=== PATIENT | female | born 1945 | race Caucasian/White ===

== ENCOUNTER 2019-06-17 16:38 | Inpatient (IN) | payer MEDICARE, BC ==
[~2019-06-17] VITALS: Ht 167.6 cm; Wt 47.6 kg
[2019-06-17] MEDS ORDERED: ASPI-1169 PO (17:17)
[2019-06-17] MEDS ORDERED: METO25TA20 PO (17:17)
[2019-06-17] MEDS ORDERED: TIOT18CA3 IH (17:17)
[2019-06-17] MEDS ORDERED: NICO1PAT44 TD (17:17)
[2019-06-17] MEDS ORDERED: CLOP75TA15 PO (17:17)
[2019-06-17] MEDS ORDERED: FLUT1BLS IH (17:17)
[2019-06-17] MEDS ORDERED: ONDA4TAB5 PO (17:17)
[2019-06-17] MEDS ORDERED: ATOR10TA PO (17:17)
[2019-06-17] MEDS ORDERED: MULT-24 PO (17:17)
[2019-06-17] MEDS ORDERED: FURO-145 PO (17:17)
[2019-06-17] MEDS ORDERED: ALBU18HF2 IH (17:20)
[2019-06-17 17:30] VITALS: BP 148/77
[2019-06-17] MEDS ORDERED: MAGNESIUM HYDROXIDE 30 ML UDC PO PRN (17:30)
[2019-06-17] MEDS ORDERED: BLOOD SUGAR DIAGNOSTIC 1 EACH STRIP IN ONE (17:30)
[2019-06-17] MEDS ORDERED: MAG HYDROX/AL HYDROX/SIMETH 30 ML UDC PO PRN (17:30)
[2019-06-17] MEDS ORDERED: LORAZEPAM 0.5 MG TABLET PO PRN (17:30)
[2019-06-17] MEDS ORDERED: ACETAMINOPHEN 325 MG TABLET PO PRN (17:30)
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
--- NOTE | 2019-06-17 19:01 | NUR ---
DR HERNANDEZ NOTIFIED OF MED RECONCILIATION
--- NOTE | 2019-06-17 19:28 | NUR ---
GPS RN NOTE RECEIVED PATIENT ASLEEP IN HER BED, AROUSE TO VERBAL/TACTILE STIMULI. A & O X 3. NO ACUTE DISTRESS NOTED. PER AM RN REPORT PATIENT IS SLEEPING AFTER THE ADMISSION & UNABLE TO DO CSSRS ASSESSMENT ON PATIENT. WILL DO CSSRS ASSESSMENT ONCE PATIENT IS AWAKE. PER REPORT, PATIENT HAD BEEN COOPERATIVE BUT ANXIOUS AT TIMES. SAFETY MEASURES IN PLACE. BED ALARM ON. BED IN LOW LOCKED POSITION. WILL CONTINUE TO MONITOR Q 15 MINS. FOR SAFETY & BEHAVIOR.
[2019-06-17 20:00] VITALS: BP 136/69
[2019-06-17 20:07] VITALS: BP 136/69
[2019-06-17] MEDS ORDERED: ALBUTEROL FS 2.5 MG/3 ML VIAL.NEB NEB PRN (20:30)
[2019-06-17] MEDS ORDERED: ONDANSETRON 4 MG TAB.RAPDIS PO PRN (20:30)
--- NOTE | 2019-06-17 20:56 | NUR ---
GPS RN NOTE MEDS REVIEWED & MED RECON DONE BY RONDA WEBB.
[2019-06-17] MEDS: ATORVASTATIN 10 MG TABLET PO SCH (21:26)
--- NOTE | 2019-06-17 21:45 | NUR ---
[facility] ORDERED SCHEDULED MEDS GIVEN TO THE PATIENT, NOTED COUGHING WHILE SWALLOWING WATER & PT. ALSO VERBALIZED THAT SHE HAS DIFFICULTY SWALLOWING. MADE AWARE WITH NEW ORDER [facility]. NOTED & CARRIED OUT.
--- NOTE | 2019-06-17 21:58 | NUR ---
GPS RN NOTE WHEN ASSESSED THE PATIENT FOR CSRRS, IN THE BEGINNING, SHE WAS CALM, RELAXED, COOPERATIVE BUT DEPRESSED, FLAT AFFECT. AFTER ASKING HER 2 QUESTIONS SHE STARTED GETTING ANXIOUS & ANSWERED NO TO EACH QUESTION WAS ASKED TO HER. PATIENT DENIED TO TRY TO HANG HERSELF WITH DOG LEASH (PER 5150 HOLD). PT. STATED, "I AM OK NOW, I FEEL SAFE." AFTER THAT SHE WANTED TO SLEEP & NOT TO BE BOTHERED. WILL CONTINUE TO MONITOR THE PATIENT Q 15 MINS WITH FREQUENT VISUAL CHECKS. PLACED CLOSE TO NURSES STATION FOR SAFETY/LINE OF OBSERVATION.
[2019-06-18] MEDS: IPRATROPIUM NEB FS 0.5 MG/2.5 ML AMPUL.NEB NEB SCH ×4 (01:30→20:41)
[2019-06-18 08:00] VITALS: BP 152/68
[2019-06-18] MEDS ORDERED: TIOTROPIUM BROMIDE 6 CAP/BOX CAP.W.DEV IH SCH (09:00)
[2019-06-18] MEDS: FLUTICASONE/VILANTEROL 1 EACH BLST.W.DEV IH SCH (09:21)
[2019-06-18] MEDS: CLOPIDOGREL BISULFATE 75 MG TABLET PO SCH (09:21)
[2019-06-18] MEDS: METOPROLOL TARTRATE 25 MG TABLET PO SCH ×2 (09:22→18:21)
[2019-06-18] MEDS: ASPIRIN 81 MG TAB.CHEW PO SCH (09:22)
[2019-06-18] MEDS: FUROSEMIDE 20 MG TABLET PO SCH (09:22)
[2019-06-18] MEDS: MULTIVITAMINS,THERAGRAN 1 UDTAB TABLET PO SCH (09:22)
[2019-06-18] MEDS: NICOTINE PATCH (7MG) 7 MG PATCH.TD24 TD SCH (09:23)
[2019-06-18] MEDS ORDERED: LORAZEPAM 0.5 MG TABLET PO PRN (11:30)
--- NOTE | 2019-06-18 11:40 | NUR ---
Family Contact: STEPH called the pts daughter/DPOAChen ([phone]), and informed her that the pt will be here for an average of 7-10 days. SW inquired about the pts safety returning home and the pts daughter stated that she cannot return to their home because she cannot care for her and stated that the pt needs a facility. STEPH stated that she will keep her updated.
--- NOTE | 2019-06-18 12:12 | NUR ---
Initial Discharge Plan: Pt currently resides in her home located at [address] [place] [address], [place] [address]; ([phone]). Per pt, she would like to return to her home after a few days. SW spoke to the pts daughter, Chen ([phone]), stated that the pt cannot return home and needs a facility. STEPH will work with the pt and the MD regarding appropriate discharge planning. SW will form a safe and proper discharge plan.
[2019-06-18] MEDS: Fluoxetine 10 mg capsule PO SCH (12:42)
--- NOTE | 2019-06-18 15:05 | NUR ---
Substance Abuse Intervention: SW conducted a substance abuse intervention with the pt due to her daily alcohol consumption.
--- NOTE | 2019-06-18 15:44 | NUR ---
GROUP THERAPY: Pt was present in group discussing "suicidal ideation." S: "My daughter is a big trigger for me I need help figuring out hoe to have a good relationship with her. I feel like I walk on egg shells in my own home when she is there and that is why I drink. So I just decided to get on that ladder and that is where my daughter found me. I know we are both co-dependent but I need her and she needs me but it is just not a good situation that we are both in. I don't know how things will change after I'm out of here. I don't have a plan." O: Pts mood was depressed with sad affect. Pt maintained appropriate eye contact and was cooperative and respectful of her peers. A: Pt gained awareness in how her drinking and relationship with her daughter is a trigger for her suicidal attempt/ideation. She expressed intense feelings related to her drinking and unhealthy relationship with her daughter and appears to assume responsibility for her past behaviors. P: SW will continue to monitor pts suicidal ideation once daily.
--- NOTE | 2019-06-18 15:51 | NUR ---
Family Contact: SW called the pts daughter/DPOA, Chen ([phone]), and left a voicemail that informed her that the pt would like her to mail out the birthday cards for her niece.
[2019-06-18 16:00] VITALS: BP 133/59
[2019-06-18] MEDS: ENSURE ENLIVE CHOC 237 ML CAN PO SCH (17:00)
[2019-06-18 20:27] VITALS: BP_SYST 145; BP_SYST 175; BP_DIAS 77; BP_DIAS 82
[2019-06-18] MEDS: ATORVASTATIN 10 MG TABLET PO SCH (21:03)
[2019-06-18] MEDS: TEMAZEPAM 7.5 MG CAPSULE PO PRN (23:40)
--- NOTE | 2019-06-18 23:43 | NUR ---
GPS RN NOTE: INSOMNIA PATIENT C/O INABILITY TO SLEEP. ADMINISTERED RESTORIL 7.5MG PO ORDERED. WILL CONTINUE TO MONITOR.
[2019-06-19] MEDS: IPRATROPIUM NEB FS 0.5 MG/2.5 ML AMPUL.NEB NEB SCH ×4 (00:43→19:55)
[2019-06-19 08:00] VITALS: BP 133/68
[2019-06-19] MEDS: ENSURE ENLIVE CHOC 237 ML CAN PO SCH ×2 (08:00→17:34)
[2019-06-19 08:16] LABS: ALBUMIN 3.2 g/dL (3.4-5.0); BILIRUBIN,TOTAL 0.4 mg/dL (0.2-1.0); CALCIUM, SERUM 8.8 mg/dL (8.5-10.1); CREATININE 0.8 mg/dL (0.6-1.3); POTASSIUM 4.3 mmol/L (3.5-5.1); TOTAL PROTEIN, SERUM 6.8 g/dL (6.4-8.2)
[2019-06-19] MEDS: CLOPIDOGREL BISULFATE 75 MG TABLET PO SCH (09:25)
[2019-06-19] MEDS: ASPIRIN 81 MG TAB.CHEW PO SCH (09:25)
[2019-06-19] MEDS: NICOTINE PATCH (7MG) 7 MG PATCH.TD24 TD SCH (09:25)
[2019-06-19] MEDS: METOPROLOL TARTRATE 25 MG TABLET PO SCH ×2 (09:26→17:00)
[2019-06-19] MEDS: MULTIVITAMINS,THERAGRAN 1 UDTAB TABLET PO SCH (09:26)
[2019-06-19] MEDS: FUROSEMIDE 20 MG TABLET PO SCH (09:27)
[2019-06-19] MEDS: FLUTICASONE/VILANTEROL 1 EACH BLST.W.DEV IH SCH (09:28)
[2019-06-19] MEDS: Fluoxetine 10 mg capsule PO SCH (13:25)
[2019-06-19 16:00] VITALS: BP 108/69
--- NOTE | 2019-06-19 18:36 | NUR ---
staying to self most of day.occasionally amb. in halls with use of walker.
[2019-06-19 21:06] VITALS: BP 103/53
[2019-06-19] MEDS: TEMAZEPAM 7.5 MG CAPSULE PO PRN (22:01)
[2019-06-19] MEDS: ATORVASTATIN 10 MG TABLET PO SCH (22:01)
[2019-06-20] MEDS: IPRATROPIUM NEB FS 0.5 MG/2.5 ML AMPUL.NEB NEB SCH ×4 (01:30→19:30)
[2019-06-20 08:00] VITALS: BP 129/74
[2019-06-20] MEDS ORDERED: LOPERAMIDE HCL (2 MG CAP) 2 MG CAPSULE PO PRN (08:00)
[2019-06-20] MEDS: METOPROLOL TARTRATE 25 MG TABLET PO SCH ×2 (08:16→16:04)
[2019-06-20] MEDS: NICOTINE PATCH (7MG) 7 MG PATCH.TD24 TD SCH (08:16)
[2019-06-20] MEDS: CLOPIDOGREL BISULFATE 75 MG TABLET PO SCH (08:16)
[2019-06-20] MEDS: FUROSEMIDE 20 MG TABLET PO SCH (08:17)
[2019-06-20] MEDS: ASPIRIN 81 MG TAB.CHEW PO SCH (08:17)
[2019-06-20] MEDS: MULTIVITAMINS,THERAGRAN 1 UDTAB TABLET PO SCH (08:17)
[2019-06-20] MEDS: ENSURE ENLIVE CHOC 237 ML CAN PO SCH ×2 (08:18→16:06)
[2019-06-20] MEDS: FLUTICASONE/VILANTEROL 1 EACH BLST.W.DEV IH SCH (08:19)
--- NOTE | 2019-06-20 09:24 | NUR ---
GPS RN NOTE: PATIENT AWAKE IN BED NO S/S DISTRESS NOTED A & O X 3. DENIED SI/HI AT THIS TIME,FLAT AFFECT, ISOLATIVE, GUARDED. NO ACUTE DISTRESS NOTED.ENVIRONMENTAL SAFETY CHECKS DONE. BED ALARM ON. BEDIN LOW LOCKED POSITION. CALL ADDISON WITHIN REACH. WILL CONTINUE TO MONITOR Q 15 MINS.
[2019-06-20] MEDS: Fluoxetine 10 mg capsule PO SCH (12:03)
[2019-06-20 16:02] VITALS: BP 119/66
[2019-06-20 20:05] VITALS: BP 123/56
[2019-06-20] MEDS: ATORVASTATIN 10 MG TABLET PO SCH (21:21)
[2019-06-20] MEDS: TEMAZEPAM 7.5 MG CAPSULE PO PRN (21:21)
--- NOTE | 2019-06-20 21:21 | NUR ---
rn gps notes patient noted easily agitated strongly requesting for sleep aide states " i go to sleep at this time". prn restoril given as ordered. will continue to monitor and attend to needs q15min checks continued
[2019-06-21] MEDS: IPRATROPIUM NEB FS 0.5 MG/2.5 ML AMPUL.NEB NEB SCH ×5 (01:30→20:47)
[2019-06-21 08:00] VITALS: BP 125/55
[2019-06-21] MEDS: NICOTINE PATCH (7MG) 7 MG PATCH.TD24 TD SCH (08:48)
[2019-06-21] MEDS: CLOPIDOGREL BISULFATE 75 MG TABLET PO SCH (08:48)
[2019-06-21] MEDS: ENSURE ENLIVE CHOC 237 ML CAN PO SCH ×2 (08:48→17:43)
[2019-06-21] MEDS: MULTIVITAMINS,THERAGRAN 1 UDTAB TABLET PO SCH (08:50)
[2019-06-21] MEDS: ASPIRIN 81 MG TAB.CHEW PO SCH (08:50)
[2019-06-21] MEDS: METOPROLOL TARTRATE 25 MG TABLET PO SCH ×2 (08:50→17:00)
[2019-06-21] MEDS: FUROSEMIDE 20 MG TABLET PO SCH (08:50)
[2019-06-21] MEDS: FLUTICASONE/VILANTEROL 1 EACH BLST.W.DEV IH SCH (08:51)
[2019-06-21] MEDS: Fluoxetine 10 mg capsule PO SCH (12:39)
[2019-06-21 16:00] VITALS: BP 119/69
[2019-06-21 20:47] VITALS: BP 112/64
[2019-06-21] MEDS: ATORVASTATIN 10 MG TABLET PO SCH (22:21)
[2019-06-22] MEDS: IPRATROPIUM NEB FS 0.5 MG/2.5 ML AMPUL.NEB NEB SCH ×4 (01:30→20:45)
[2019-06-22] MEDS: ENSURE ENLIVE CHOC 237 ML CAN PO SCH ×2 (07:31→16:45)
[2019-06-22 08:00] VITALS: BP 136/87
[2019-06-22] MEDS: ASPIRIN 81 MG TAB.CHEW PO SCH (08:20)
[2019-06-22] MEDS: FUROSEMIDE 20 MG TABLET PO SCH (08:20)
[2019-06-22] MEDS: CLOPIDOGREL BISULFATE 75 MG TABLET PO SCH (08:20)
[2019-06-22] MEDS: MULTIVITAMINS,THERAGRAN 1 UDTAB TABLET PO SCH (08:20)
[2019-06-22] MEDS: NICOTINE PATCH (7MG) 7 MG PATCH.TD24 TD SCH (08:21)
[2019-06-22] MEDS: METOPROLOL TARTRATE 25 MG TABLET PO SCH ×2 (08:29→16:44)
[2019-06-22] MEDS: FLUTICASONE/VILANTEROL 1 EACH BLST.W.DEV IH SCH (08:30)
--- NOTE | 2019-06-22 09:45 | NUR ---
SNF Referral: STEPH faxed a referral to [facility] with attn to Jose to the fax number: [phone].
[2019-06-22] MEDS: Fluoxetine 10 mg capsule PO SCH (13:12)
[2019-06-22 16:00] VITALS: BP 122/58
--- NOTE | 2019-06-22 16:18 | NUR ---
Group Note: Pt was encouraged to attend group therapy on 06/22/19 at 2pm discussing discharge planning and concerns and the pt attended. S: "I know that I need space from my daughter because she is my trigger and so I know that my MD and my SW are securing a half-way. I want to be discharged soon so that I can go home sooner. I do feel uncomfortable in new settings." O: Pt appeared to be in a euthymic mood and presented with a distressed affect. Pt was able to maintain appropriate eye contact and tone of voice throughout the group. A: Pt appeared to understand that she needs space for her own mental health and to attend to her own needs but the pt could not understand that being home is harmful to her at this time. P: Pt will continue milieu treatment and medication stabilization.
--- NOTE | 2019-06-22 19:54 | NUR ---
GPS RN OPENING NOTES: PATIENT RESTING IN HER BED, EASILY AGITED ,FORGETFUL ,PARANOID DENIES SI/HI/AVH AT THIS TIME,ENCOURAGED FOR VERBALIZATION OF FEELINGS, SAFETY PRECAUTIONS IMPLEMENTED. INTERACT WITH ENGAGED, NEEDS FREQUENTLY REDIRECTIONS ,WILL CONTINUE TO MONITOR Q15MIN ROUNDS FOR SAFETY AND BEHAVIOR.
[2019-06-22 20:14] VITALS: BP 112/62
[2019-06-22] MEDS: ATORVASTATIN 10 MG TABLET PO SCH (21:03)
[2019-06-23] MEDS: IPRATROPIUM NEB FS 0.5 MG/2.5 ML AMPUL.NEB NEB SCH ×2 (01:28→07:35)
--- NOTE | 2019-06-23 06:53 | NUR ---
GPS RN CLOSING NOTE: PATIENT NO ACUTE DISTRESS NOTED. DENIES PAIN OR DISCOMFORT. NO AGITATION NOTED. NO BEHAVIOR PROBLEMS NOTED ,DENIES SI/HI/AVH AT THIS TIME. SAFETY PRECAUTIONS IMPLEMENTED.ALL NEEDS ATTENDED AND ANTICIPATED, ENCOURGED FOR VERBALIZED ANY FEELING , WILL CONTINUE TO MONITOR FOR PT'S SAFETY AND BEHAVIOUR.
[2019-06-23 08:00] VITALS: BP 140/61
[2019-06-23] MEDS: FUROSEMIDE 20 MG TABLET PO SCH (08:30)
[2019-06-23] MEDS: NICOTINE PATCH (7MG) 7 MG PATCH.TD24 TD SCH (08:30)
[2019-06-23] MEDS: CLOPIDOGREL BISULFATE 75 MG TABLET PO SCH (08:30)
[2019-06-23] MEDS: ASPIRIN 81 MG TAB.CHEW PO SCH (08:30)
[2019-06-23] MEDS: MULTIVITAMINS,THERAGRAN 1 UDTAB TABLET PO SCH (08:30)
[2019-06-23] MEDS: METOPROLOL TARTRATE 25 MG TABLET PO SCH (08:31)
[2019-06-23] MEDS: ENSURE ENLIVE CHOC 237 ML CAN PO SCH (08:37)
[2019-06-23] MEDS: FLUTICASONE/VILANTEROL 1 EACH BLST.W.DEV IH SCH (08:37)
--- NOTE | 2019-06-23 09:58 | NUR ---
SNF Contact: Carmen ([phone]) from [facility] contacted the SW and stated that the pt was accepted to their facility.
--- NOTE | 2019-06-23 11:52 | NUR ---
Individual Intervention with the Pt: SW discussed the pts discharge plan with the pt and informed her that she will be discharging soon to a SNF for a temporary period of time and that she will be returning home eventually. She stated that she would rather be home sooner than later.
--- NOTE | 2019-06-23 13:16 | NUR ---
Family Contact: SW called the pts daughter/DPChen [employer] ([phone]), and left a voicemail message that informed her that the pt is going to be discharged to a nursing facility today called [facility] and provided her with the information.
[2019-06-23] MEDS: Fluoxetine 10 mg capsule PO SCH (13:55)
[2019-06-23 15:17] VITALS: BP 126/71
--- NOTE | 2019-06-23 15:19 | NUR ---
pt discharge by dr gauthier. inserter agrees with discharge plan. pt is going to [facility]. pt is alert oriented x 3 and ambulatory. vital sign stable. no acute distress noted. calm and cooperative. denies s/i and/or h/i at time of discharge. exitcare complete. medication reconciled. skin assessment done and pictures taken. belongings collected. pt left in stable condition.
--- NOTE | 2019-06-23 16:18 | NUR ---
Discharge Note: Pt was discharged to [facility] ([facility]) located at [address] [place] [address]; ([phone]). Pt was transported via [facility] at 3PM. Pts daughter, Chen ([phone]), was made aware of the placement. Upon discharge, the pt appeared to be in a euthymic mood and presented with a calm mood. Pt appeared to be alert and oriented x4 (time, place, self and situation). Pt denied both suicidal and homicidal ideation as well as auditory and visual hallucinations. Pt was provided with three substance abuse referrals that are listed below. Pt will continue to address her substance with her treatment team. Pt will be under the care of psychiatrist, Dr. Teresa Kraft, located at [address] [address]; and rn long term care, Dr. Segundo, located at [address] [place] [address]; ). Choice of Vendor form was signed. Substance Abuse Referrals: [facility] [address] [facility] [place] [address] Tel. [facility] [address] [place] Provider Mental Health Treatment Tele-dermatology HIV Services Telemed[facility] [place] [address] [place] [address] [facility] [address] [place] [address]
== END 2019-06-23 15:15 | DRG 885 ==
LOC: GPS 16:38
PROVIDERS: ADMIT Psychiatry & Neurology Psychosomatic Medicine; ATTEND Internal Medicine
DX: F33.2 Major depressive disorder, recurrent severe without psychotic features (principal); I11.0 Hypertensive heart disease with heart failure; R45.851 Suicidal ideations; I50.32 Chronic diastolic (congestive) heart failure; F23 Brief psychotic disorder; F41.9 Anxiety disorder, unspecified; I25.10 Atherosclerotic heart disease of native coronary artery without angina pectoris; R26.9 Unspecified abnormalities of gait and mobility; J44.9 Chronic obstructive pulmonary disease, unspecified; E78.5 Hyperlipidemia, unspecified; F09 Unspecified mental disorder due to known physiological condition; F12.90 Cannabis use, unspecified, uncomplicated; Z86.73 Personal history of transient ischemic attack (TIA), and cerebral infarction without residual deficits
CPT/HCPCS: 36415; 80053-TC; 80061-TC; 82962-TC; 92521; 97116-TC; 97530-TC